=== PATIENT | male | born 1960 ===

== ENCOUNTER 2018-10-01 04:55 | Outpatient (CLI) | payer BC ==
[~2018-10-01 04:55] MED LIST: METF500T PO; OXYC-145 PO
== END 2018-10-01 23:59 | disposition home or self-care (01) ==
LOC: DIABETIC 04:55
PROVIDERS: ATTEND Internal Medicine Endocrinology, Diabetes & Metabolism
DX: E11.9 Type 2 diabetes mellitus without complications (principal); Z71.3 Dietary counseling and surveillance
CPT/HCPCS: G0108